=== PATIENT | female | born 1980 | race African-American/Black ===

== ENCOUNTER 2021-07-14 13:24 | Emergency (ER) | payer MEDICARE, MEDICAID, SELFPAY ==
[2021-07-14 13:25] VITALS: BP 99/85; PULSE 88; RESP 18; TEMP 36.8; O2SAT 97; BMI 31.4
--- NOTE | 2021-07-14 13:48 | EDS_ITS ---
HPI HPI - GI History of Present Illness Chief Complaint: GI Bleed Informant: patient Abdominal Pain/Flank Pain Onset: - (4 years) Timing: Intermittent and Lasts (Anywhere from 20 minutes to all day) Quality: Aching Location: - (Periumbilical nonlateralizing) Current Severity: Gone Maximum Severity: Moderate Worsened by: Nothing Relieved by: Nothing Nausea/Vomiting/Emesis GI Symptom: Negative for Nausea and Vomiting Diarrhea/Melena/Hematochezia GI Symptom: Positive for Hematochezia; Negative for Diarrhea and Melena Stool Quality: Positive for BRB per rectum Severity: Mild Associated Symptoms Associated Symptoms: Negative for Dysuria, Frequency and Hematuria Narrative Narrative: Patient states she is currently [facility], she has had bright red blood per rectum when she wipes, following what appears to be a normal bowel movement, off and on for the past 4 years, worse in the past week. In addition, she has been having intermittent periumbilical abdominal pain that is random, does not always get better after a bowel movement. She denies any nausea, vomiting, fevers or chills. No trouble urinating. No presyncopal symptoms or generalized weakness lately. She states she has some pain that feels like it is up in her rectum that she also states has been there for 4 years, and she denies any anal pain. She states today in the ER, this is the first time she has had any of this evaluated. [facility] Medical History delivery delivered Home Medications hydrocortisone-pramoxine [Proctofoam HC] 1 applic [place] QHS PRN #10 g 07/14/21 [Rx Last Taken Unknown] Allergy/AdvReac Type Severity Reaction Status Date / Time No Known Allergies Allergy Verified 07/14/21 13:28 no surgical history Social History Smoking Status: Current some day smoker tobacco type: cigarettes ROS ROS ED Constitutional Constitutional ED: Denies chills or fever(s) Eyes Eyes: Denies change in vision or diplopia ENT ENT ED: Denies rhinorrhea or sore throat Cardiovascular Cardiovascular: Denies chest pain or palpitations Respiratory/Chest Respiratory/Chest: Denies cough or dyspnea Gastrointestinal Gastrointestinal: Denies abdominal pain, diarrhea, nausea or vomiting Genitourinary Genitourinary ED: Denies dysuria or hematuria Musculoskeletal Musculoskeletal: Denies back pain or neck pain Integumentary Denies abscess or rash Neurologic Neurologic: Denies headache(s), paresthesias or weakness Psychiatric Psychiatric: Denies anxiety or suicidal thoughts EXAM Physical Exam Const Vital Signs: 07/14/21 13:25 Temperature 98.3 F Temperature Source Temporal Pulse Rate 88 Respiratory Rate 18 Blood Pressure 99/85 H Blood Pressure Mean 89 Pulse Ox 97 Oxygen Delivery Method Room Air Positive well nourished, well developed, obese and unkempt General Appearance ED: unkempt, well developed and NAD Nutritional Appearance: obese HEENT Reports moist mucous membranes normocephalic and atraumatic Eyes PERRL and EOMs intact bilaterally Neck full ROM and supple Resp normal respiratory effort and clear to auscultation bilaterally Cardio regular rate, regular rhythm and no murmurs Rate: Negative for tachycardic GI non-tender and non-distended Auscultation: normoactive bowel sounds Palpation: soft Rectal Exam: other Other Details: refused Back/Spine no CVA tenderness General Back: other FROM Extremity normal to inspection General Extremety ED: Negative for edema, pulses abnormal or tenderness General Extremity: Negative for edema or pulses abnormal Neuro oriented x3, CN's II-XII intact bilaterally and no sensory deficits noted Sensorium / Orientation: awake and alert Motor Exam: strength 5/5 throughout Psych Appearance: unkempt Skin no rashes or lesions noted and no wounds MDM MDM MDM Narrative Medical decision making narrative: I advised the patient, that she will very likely need endoscopy, sigmoidoscopy, and/or colonoscopy for these issues, given the differential diagnosis for rectal bleeding and intermittent abdominal pain. I offered blood work to screen her and get things started here, but she refuses and states I do not do blood work. She also refuses a anal/rectal exam. Her vital signs are normal and her exam is very benign otherwise. I explained all this to her and she seems understand, and I offered a prescription for Proctofoam HC to treat the possibility of internal hemorrhoids until she is able to follow-up with someone. She states she is willing to try that. Discharge Plan Triage Chief Complaint: GI Bleed ED Provider: Christopher Miller Dx/Rx/DC Orders Clinical Impression: Intermittent generalized abdominal pain, Rectal bleeding Instructions: Understanding Rectal Bleeding Prescriptions: New Proctofoam HC 1-1 % foam 1 applic WA QHS PRN (Reason: hemorrhoids) Qty: 10 RF: 0 Primary Care Provider: NOT,DEFINED Referrals: Sherwin,DO Markus [STAFF PHYSICIAN] - (call for gastroenterology appt, possibly need colonoscopy or sigmoidoscopy) Sia Muro [NON-STAFF] - (call for appt) Disposition Disposition: Home, Self Care
== END 2021-07-14 14:30 | disposition home or self-care (01) ==
LOC: ED 14:09
PROVIDERS: Emergency Provider Emergency Medicine; Visit Provider Emergency Medicine
DX: K62.5 Hemorrhage of anus and rectum (principal); R10.84 Generalized abdominal pain; F17.210 Nicotine dependence, cigarettes, uncomplicated; R10.33 Periumbilical pain; E66.9 Obesity, unspecified; Z68.31 Body mass index [BMI] 31.0-31.9, adult
CPT/HCPCS: 99282